=== PATIENT | male | born 1985 ===

== ENCOUNTER 2020-12-03 13:13 | Emergency (ER) | payer SELFPAY ==
[2020-12-03 13:21] VITALS: BP 137/80
[2020-12-03 16:02] LABS: Alanine Aminotransferase 15 units/L (7-56); BUN/Creatinine Ratio 10; Blood Urea Nitrogen 8 mg/dL (9-20); Calcium 9.7 mg/dL (8.4-10.2); Hemolysis Index 36
[2020-12-03 16:07] LABS: Basophils # (Auto) 0.1 K/mm3 (0.0-0.1); Basophils % (Auto) 1.4 % (0.0-1.8); Eosinophils # (Auto) 0.1 K/mm3 (0.0-0.4); Eosinophils % (Auto) 1.3 % (0.0-4.3); Hematocrit 41.2 % (35.5-45.6); Hemoglobin 14.2 gm/dl (11.8-15.2); Lymphocytes # (Auto) 2.2 K/mm3 (1.2-5.4); Lymphocytes % (Auto) 25.1 % (13.4-35.0); Mean Corpuscular HGB Conc 34 % (32-34); Mean Corpuscular Volume 97 fl (84-94); Monocytes # (Auto) 0.6 K/mm3 (0.0-0.8); Monocytes % (Auto) 6.8 % (0.0-7.3); Platelet Count 210 K/mm3 (140-440); Red Blood Count 4.26 M/mm3 (3.65-5.03); Red Cell Distribution Width 13.4 % (13.2-15.2)
--- NOTE | 2020-12-03 16:29 | Emergency Department Report ---
ED General Adult HPI - General Chief complaint: Headache Stated complaint: VOMITING/HEAD PAIN Time Seen by Provider: 12/03/20 14:37 Source: patient Mode of arrival: Ambulatory Limitations: No Limitations - History of Present Illness Initial comments: 35-year-old -[place] male patient presents with complaints of right- sided headache starting last night. Patient reports a history of recurrent headaches that are right-sided and behind his right eye for the past year. He has not had these headaches evaluated by a healthcare professional as of yet. He rates his current headache as a 5/10 in severity. He reports normally he takes Excedrin and that it relieves the headache completely, however it the headache diminished but did not resolve fully this time. He also reports 1 episode of vomiting and states this normally occurs with his headaches. Headaches normally occur at night and do cause tearing in his right eye. He denies any numbness/tingling/weakness in his limbs, confusion, memory loss, vision changes, dizziness, or difficulty with speech/ambulation. No other past medical history per patient. - Related Data Previous Rx's Medication Instructions Recorded Last Taken Type Butalb/Acetamin/Caff 50-325-40 1 tab PO Q8HR PRN #8 tablet 12/03/20 Unknown Rx [Fioricet 50-325-40] predniSONE [Deltasone] 20 mg PO BID 2 Days #4 tab 12/03/20 Unknown Rx Allergies Allergy/AdvReac Type Severity Reaction Status Date / Time No Known Allergies Allergy Unverified 12/03/20 13:19 ED Review of Systems ROS: Stated complaint: VOMITING/HEAD PAIN Other details as noted in HPI Constitutional: denies: chills, fever Eyes: denies: vision change Respiratory: denies: cough, shortness of breath Cardiovascular: denies: chest pain, edema, syncope Gastrointestinal: nausea, vomiting. denies: abdominal pain Skin: denies: rash, change in color Neurological: headache. denies: weakness, numbness, paresthesias, confusion, abnormal gait Hematological/Lymphatic: denies: swollen glands ED Past Medical Hx - Past Medical History Additional medical history: HEADACHES - Surgical History Past Surgical History?: No - Medications Home Medications: Home Medications Medication Instructions Recorded Confirmed Last Taken Type Butalb/Acetamin/Caff 50-325-40 1 tab PO Q8HR PRN #8 tablet 12/03/20 Unknown Rx [Fioricet 50-325-40] predniSONE [Deltasone] 20 mg PO BID 2 Days #4 tab 12/03/20 Unknown Rx ED Physical Exam - General Limitations: No Limitations General appearance: alert, in no apparent distress - Head Head exam: Present: atraumatic, normocephalic - Eye Eye exam: Present: normal appearance, PERRL, EOMI. Absent: scleral icterus - Neck Neck exam: Present: normal inspection - Respiratory Respiratory exam: Absent: respiratory distress - Cardiovascular Cardiovascular Exam: Present: regular rate - Neurological Exam Neurological exam: Present: alert, oriented X3, CN II-XII intact, normal gait. Absent: motor sensory deficit - Expanded Neurological Exam Expanded Cerebellar function: Finger to Nose: Normal, Heel to Conce[place]ion: Normal, Romberg: Normal Sensory exam: Upper Extremity Light Touch: Normal, Lower Extremity Light Touch: Normal Motor strength exam: RUE: 4, LUE: 4, RLE: 4, LLE: 4 Best Eye Response ([place]): (4) open spontaneously Best Motor Response ([place]): (6) obeys commands Best Verbal Response ([place]): (5) oriented Ramu Total: 15 - Psychiatric Psychiatric exam: Present: normal affect, normal mood - Skin Skin exam: Present: warm, dry, intact, normal color. Absent: rash ED Course Vital Signs 12/03/20 13:17 Temperature 98.4 F Pulse Rate 59 L Respiratory 20 Rate Blood Pressure 137/80 O2 Sat by Pulse 100 Oximetry ED Medical Decision Making - Lab Data Result diagrams: 12/03/20 15:30 12/03/20 15:30 Lab Results 12/03/20 12/03/20 Range/Units 15:30 15:30 WBC 8.9 (4.5-11.0) K/mm3 RBC 4.26 (3.65-5.03) M/mm3 Hgb 14.2 (11.8-15.2) gm/dl Hct 41.2 (35.5-45.6) % MCV 97 H (84-94) fl MCH 33 H (28-32) pg MCHC 34 (32-34) % RDW 13.4 (13.2-15.2) % Plt Count 210 (140-440) K/mm3 Lymph % (Auto) 25.1 (13.4-35.0) % [place] % (Auto) 6.8 (0.0-7.3) % Eos % (Auto) 1.3 (0.0-4.3) % Baso % (Auto) 1.4 (0.0-1.8) % Lymph # (Auto) 2.2 (1.2-5.4) K/mm3 [place] # (Auto) 0.6 (0.0-0.8) K/mm3 Eos # (Auto) 0.1 (0.0-0.4) K/mm3 Baso # (Auto) 0.1 (0.0-0.1) K/mm3 Seg Neutrophils % 65.4 (40.0-70.0) % Seg Neutrophils # 5.9 (1.8-7.7) K/mm3 Sodium 140 (137-145) mmol/L Potassium 4.7 (3.6-5.0) mmol/L Chloride 102.9 (98-107) mmol/L Carbon Dioxide 23 (22-30) mmol/L Anion Gap 19 mmol/L BUN 8 L (9-20) mg/dL Creatinine 0.8 (0.8-1.3) mg/dL Estimated GFR > 60 ml/min BUN/Creatinine Ratio 10 % Glucose 88 (75-100) mg/dL Calcium 9.7 (8.4-10.2) mg/dL Total Bilirubin 0.90 (0.1-1.2) mg/dL AST 21 (5-40) units/L ALT 15 (7-56) units/L Alkaline Phosphatase 76 (35-129) units/L Total Protein 8.4 H (6.3-8.2) g/dL Albumin 5.0 (3.9-5) g/dL Albumin/Globulin Ratio 1.5 % - Medical Decision Making 35-year-old -[place] male patient presents with complaints of right- sided headache starting last night. Patient reports a history of recurrent headaches that are right-sided and behind his right eye for the past year. He has not had these headaches evaluated by a healthcare professional as of yet. He rates his current headache as a 5/10 in severity. He reports normally he takes Excedrin and that it relieves the headache completely, however it the headache diminished but did not resolve fully this time. He also reports 1 ep isode of vomiting and states this normally occurs with his headaches. Headaches normally occur at night and do cause tearing in his right eye. He denies any numbness/tingling/weakness in his limbs, confusion, memory loss, vision changes, dizziness, or difficulty with speech/ambulation. No other past medical history per patient. 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 Patient was given oxygen here in ED and states his headache is now a 1/10 in severity. He states he would like to be discharged home. CBC and CMP are normal and his neurological exam is normal. Patient stable for discharge home. Recommend patient follows up with primary care for further evaluation and 3 to 5 days. Strict return precautions were discussed in great detail with patient who verbalizes understanding. Critical care attestation.: If time is entered above; I have spent that time in minutes in the direct care of this critically ill patient, excluding procedure time. ED Disposition Clinical Impression: Headache Disposition: 01 HOME / SELF CARE / HOMELESS Is pt being admited?: No Condition: Stable Instructions: Cluster Headache Prescriptions: predniSONE [Deltasone] 20 mg PO BID 2 Days #4 tab Butalb/Acetamin/Caff 50-325-40 [Fioricet 50-325-40] 1 tab PO Q8HR PRN #8 tablet PRN Reason: Headache Referrals: PRIMARY CAREMD [Primary Care Provider] - 3-5 Days [facility] [Provider Group] - 3-5 Days
== END 2020-12-03 16:38 | disposition left against medical advice (07) ==
LOC: ED 13:13
DX: R51.9 Headache, unspecified (principal); Z79.899 Other long term (current) drug therapy
CPT/HCPCS: 36415; 80053; 85025; 99283